=== PATIENT | male | born 1960 | race Caucasian/White ===

== ENCOUNTER 2019-05-18 06:54 | Emergency (ER) | payer MEDICAID, OTHER ==
[~2019-05-18] VITALS: Ht 193 cm; Wt 108.9 kg
[~2019-05-18 06:54] MED LIST: CITA20TA9 PO; FAMO20TA7 PO; GABA-827 PO; LURA20TA PO; MELA5TAB14 PO; SUCR1ORA5 PO; THIA100T67 PO
[2019-05-18] MEDS ORDERED: MORPHINE SULFATE 4 MG/ML, 1ML IVPush PRN (07:30)
[2019-05-18] MEDS ORDERED: METOCLOPRAMIDE 5 MG/ML, 2ML ONE (07:41)
[2019-05-18] MEDS ORDERED: MORPHINE SULFATE 4 MG/ML, 1ML ONE (07:42)
[2019-05-18] MEDS ORDERED: MAALOX/HYOSCYAMINE/LIDOCAINE 45 ML BTL ONE (07:42)
[2019-05-18] MEDS ORDERED: FAMOTIDINE 20 MG/2 ML ONE (07:42)
[2019-05-18 07:56] LABS: ALANINE AMINOTRANSFERASE 38 U/L (12-78); ALBUMIN 4.2 g/dL (3.4-5.0); ANION GAP 13 mmol/L (5-15); CHLORIDE 99 mmol/L (98-107); CREATININE 1.16 mg/dL (0.7-1.3); MEAN CORPUSCULAR HEMOGLOBIN 31.5 pg (27.5-34.5); MEAN CORPUSCULAR HGB CONC 33.5 g/dL (33.2-36.2); MEAN CORPUSCULAR VOLUME 93.9 fL (81-97); MEAN PLATELET VOLUME 9.4 fL (7.4-10.4); PLATELET COUNT 297 x10^3/uL (130-400); RED BLOOD COUNT 5.12 x10^6/uL (4.38-5.82); RED CELL DISTRIBUTION WIDTH 14.6 % (9.4-14.8)
--- NOTE | 2019-05-18 07:58 | NUR ---
PIV STARTED AND BLOOD DRAWN. PT MEDICATED PER JUN FOR ABD PAIN AND NAUSEA. CONNECTED TO CONTINUOUS CARDIAC AND SPO2 MONITORS WITH BP CUFF SET TO Q30 MINS. WILL CONTINUE TO MONITOR.
[2019-05-18] MEDS ORDERED: MAALOX/HYOSCYAMINE/LIDOCAINE 45 ML BTL PO ONE (08:00)
[2019-05-18] MEDS ORDERED: METOCLOPRAMIDE 5 MG/ML, 2ML IVPush ONE (08:00)
[2019-05-18] MEDS ORDERED: SODIUM CHLORIDE 0.9% 1,000ML IVBOLUS ONE (08:00)
[2019-05-18] MEDS ORDERED: FAMOTIDINE 20 MG/2 ML IVPush ONE (08:00)
[2019-05-18 08:01] LABS: ALKALINE PHOSPHATASE 63 U/L (45-117); BILIRUBIN,TOTAL 1.5 mg/dL (0.2-1.0); TOTAL PROTEIN 7.7 g/dL (6.4-8.2); TROPONIN I 0.019 ng/mL (0.000-0.045)
[2019-05-18 08:16] LABS: BASOPHILS # (AUTO) 0.05 x10^3/uL (0-0.1); BASOPHILS % (AUTO) 0 % (0-1); EOSINOPHILS # (AUTO) 0.02 x10^3/uL (0-0.4); EOSINOPHILS % (AUTO) 0 % (1-7); LYMPHOCYTES # (AUTO) 1.39 x10^3/uL (1-3.4); LYMPHOCYTES % (AUTO) 10 % (22-44); MD SCAN; MONOCYTES # (AUTO) 0.95 x10^3/uL (0.2-0.8); MONOCYTES % (AUTO) 7 % (2-9); NEUTROPHILS # (AUTO) 12.07 x10^3/uL (1.8-6.8); NEUTROPHILS % (AUTO) 83 % (42-75)
[2019-05-18] MEDS ORDERED: SODIUM CHLORIDE FLUSH 10ML SYR IVF ONE (08:30)
--- NOTE | 2019-05-18 08:32 | NUR ---
CT DOING CODE NEURO BEFORE THIS PATIENT
--- NOTE | 2019-05-18 08:52 | NUR ---
PT REPORTS RELIEF OF NAUSEA AND ABD PAIN. SULLY ANDREW NOTIFIED. PT TO HAVE CT DUE TO ELEVATED WBC.
--- NOTE | 2019-05-18 09:08 | NUR ---
REPORT FROM BILL
--- NOTE | 2019-05-18 09:27 | NUR ---
OK TO DO CT WO CONTRAST. IV FAILED DURING CT W CONTRAST.
[2019-05-18 10:13] VITALS: BP 124/75
--- NOTE | 2019-05-18 11:02 | NUR ---
Patient/Caregiver given discharge instructions and they have confirmed that they understand the instructions. Patient ambulatory with steady gait.
== END 2019-05-18 11:07 | disposition home or self-care (01) ==
LOC: ED 08:36
DX: K29.00 Acute gastritis without bleeding (principal); R11.2 Nausea with vomiting, unspecified
CPT/HCPCS: 36415; 71045; 74176; 80053; 83690; 83880; 84484; 85025; 93005; 96361; 96374; 96375; 99284; J2270; J2765; J3490; J7030

== ENCOUNTER 2019-07-02 08:06 | Emergency (ER) | payer SELFPAY ==
[~2019-07-02] VITALS: Ht 193 cm; Wt 104.5 kg
[2019-07-02] MEDS ORDERED: LORazepam 1MG TABLET PO ONE ×2 (08:30→09:30)
[2019-07-02] MEDS ORDERED: LORazepam 1MG TABLET ONE ×2 (08:32→08:54)
[2019-07-02 08:38] LABS: BASOPHILS # (AUTO) 0.05 x10^3/uL (0-0.1); BASOPHILS % (AUTO) 1 % (0-1); EOSINOPHILS # (AUTO) 0.06 x10^3/uL (0-0.4); EOSINOPHILS % (AUTO) 1 % (1-7); LYMPHOCYTES # (AUTO) 2.73 x10^3/uL (1-3.4); LYMPHOCYTES % (AUTO) 29 % (22-44); MD NO; MEAN CORPUSCULAR HEMOGLOBIN 32.1 pg (27.5-34.5); MEAN CORPUSCULAR HGB CONC 34.1 g/dL (33.2-36.2); MEAN CORPUSCULAR VOLUME 94.2 fL (81-97); MONOCYTES % (AUTO) 9 % (2-9); NEUTROPHILS # (AUTO) 5.75 x10^3/uL (1.8-6.8); NEUTROPHILS % (AUTO) 61 % (42-75); PLATELET COUNT 359 x10^3/uL (130-400); RED BLOOD COUNT 4.94 x10^6/uL (4.38-5.82); RED CELL DISTRIBUTION WIDTH 15.1 % (9.4-14.8)
--- NOTE | 2019-07-02 08:46 | NUR ---
Pt resting on gurne in SI/HI secured room. All personal belongings secured and locked in ED locker for safe keeping. One of one bags in locker. Pt provided urine sample and allowed lab for blood draw. Pt provided blankes for comfort. Sitter within direct line of sight for observation. No needs expressed at this time.
[2019-07-02 08:50] LABS: ALBUMIN 3.6 g/dL (3.4-5.0); ANION GAP 14 mmol/L (5-15); CALCIUM 8.4 mg/dL (8.5-10.1); CHLORIDE 99 mmol/L (98-107); CREATININE 0.95 mg/dL (0.7-1.3)
[2019-07-02 08:51] LABS: SALICYLATE LEVEL < 1.7 mg/dL (2.8-20.0)
[2019-07-02 08:56] LABS: AMPHETAMINE SCREEN, URINE Negative (Negative); BARBITURATE SCREEN, URINE Negative (Negative); BENZODIAZEPINE SCREEN, URINE Negative (Negative); CANNABINOID SCREEN, URINE Positive (Negative); COCAINE SCREEN, URINE Negative (Negative); METHADONE SCREEN, URINE Negative (Negative); OPIATE SCREEN, URINE Negative (Negative)
[2019-07-02] MEDS ORDERED: ZIPRASIDONE 20 MG INJ IM ONE ×2 (09:30→09:31)
[2019-07-02] MEDS ORDERED: POTASSIUM CHLORIDE 20 MEQ TAB.ER.PRT ONE (09:31)
--- NOTE | 2019-07-02 09:42 | NUR ---
Provided pt medications per EMAR and pt request for "not feeling right, I feel like I am going to explode." Pt appreciative. Ordered pt breakfast tray. Sitter in direct line of sight for observation. No other needs expressed. Room remains secured for SI/HI.
[2019-07-02] MEDS: POTASSIUM CHLORIDE 20 MEQ TAB.ER.PRT PO SCH (10:10)
[2019-07-02] MEDS ORDERED: CITA40TA12 PO (10:18)
--- NOTE | 2019-07-02 10:22 | NUR ---
Pt provided medicaiton per EMAR and food tray. Pt appreciative. Pt states, "that other med helped alot I feel much better now, thank you." Pt eating breakfast tray and watching TV. No needs requested at this time. Sitter in direct line of sight for observation.
--- NOTE | 2019-07-02 11:33 | NUR ---
Pt sitting on gurney watching TV. Pt remains on SI/HI precautions. Sitter in direct line of sight for observation.
--- NOTE | 2019-07-02 12:20 | NUR ---
TIFFANY SWAPPED WITH HOSPITAL BED. PT DENIES FURTHER NEEDS AT THIS TIME. SITTER MONITORING FROM [facility] FOR SAFETY. TIFF HURD AT BEDSIDE NOW, ASSESSMENT IN PROGRESS
--- NOTE | 2019-07-02 13:11 | NUR ---
BEDSIDE REPORT FROM ELICIA TALAVERA, PT RESTING IN HOSPITAL BED. SITTER AT BEDSIDE, NO NEEDS AT THIS TIME
--- NOTE | 2019-07-02 14:00 | NUR ---
PACKET FAXED TO [facility]
--- NOTE | 2019-07-02 14:10 | NUR ---
PT RESTING IN HOSPITAL WATCHING TV WITH SITTER AT BEDSIDE. NO NEEDS AT THIS TIME.
--- NOTE | 2019-07-02 15:03 | NUR ---
PT RESTING IN HOSPITAL WATCHING TV WITH SITTER AT BEDSIDE. NO NEEDS AT THIS TIME.
[2019-07-02] MEDS ORDERED: hydrOXyzine 50MG TABLET ONE (15:20)
[2019-07-02] MEDS: HYDROXYZINE PAMOATE 50MG CAP PO PRN ×2 (15:23→22:14)
--- NOTE | 2019-07-02 16:02 | NUR ---
PT RESTING IN GURNEY WITH SITTER AT BEDSIDE. PT MEDICATED FOR ANXIETY PER REQUEST
--- NOTE | 2019-07-02 19:47 | NUR ---
PT RESTING CALMLY WATCHING TV, NAD, RESPIRATIONS EVEN AND UNLABORED, DENIES NEEDS, ROOM SECURED, SITTER AT DOORWAY FOR CONTINOUS MONITORING
--- NOTE | 2019-07-02 21:09 | NUR ---
PT SITTING UP WATCHING TV, NAD, RESPIRATIONS EVEN AND UNLABORED, DENIES NEEDS, SITTER AT DOORWAY FOR CONTINOUS MONITORING
--- NOTE | 2019-07-02 21:52 | NUR ---
pt requesting medication for anxiety. yellow slip sent to pharmacy
--- NOTE | 2019-07-02 22:15 | NUR ---
PT MEDICATED PER JUN, DENIES FURTHER NEEDS AT THIS TIME, NADN. SITTER AT DOORWAY FOR CONTINOUS MONITORING
--- NOTE | 2019-07-02 22:47 | NUR ---
PROVIDED PT WITH CRACKERS AND WATER PER HIS REQUEST, SI PRECAUTIONS MAINTAINED
--- NOTE | 2019-07-02 23:29 | NUR ---
PT SITTING UP WATCHING TV, DENIES NEEDS, SITTER AT DOORWAY FOR CONTINOUS MONITORING
--- NOTE | 2019-07-03 00:46 | NUR ---
PT SITTING UP WATCHING TV, NAD, SITTER AT DOORWAY FOR CONTINOUS MONITORING
--- NOTE | 2019-07-03 01:17 | NUR ---
report given to rosaenn min
--- NOTE | 2019-07-03 01:41 | NUR ---
report rec'd from maggie rn pt is sleeping no needs at this time sitter at door
--- NOTE | 2019-07-03 01:48 | NUR ---
pt awake wants to tale sleeping med
[2019-07-03] MEDS ORDERED: TRAZODONE 50MG TABLET ONE (01:50)
[2019-07-03] MEDS: TRAZODONE 50MG TABLET PO PRN (01:54)
--- NOTE | 2019-07-03 01:59 | NUR ---
given trazodone per pt's c/o unable to sleep
--- NOTE | 2019-07-03 06:30 | NUR ---
pt was sleeping when check vss stable vss breakfast was ordered sitter at door
--- NOTE | 2019-07-03 06:52 | NUR ---
report received from pako whitfield.
[2019-07-03] MEDS ORDERED: POTASSIUM CHLORIDE 20 MEQ TAB.ER.PRT ONE (07:15)
[2019-07-03] MEDS ORDERED: CITALOPRAM 20 MG TABLET ONE (07:15)
--- NOTE | 2019-07-03 08:16 | NUR ---
pt sleeping. resps even and unlabored. sitter monitoring from hallway for safety. room remains secure.
--- NOTE | 2019-07-03 08:20 | NUR ---
meal tray ordered again d/t pt in room2 took this pt's meal tray at this time.
[2019-07-03] MEDS ORDERED: POTASSIUM CHLORIDE 20 MEQ TAB.ER.PRT PO SCH (09:00)
[2019-07-03] MEDS: POTASSIUM CHLORIDE 20 MEQ TAB.ER.PRT PO SCH (09:00)
[2019-07-03] MEDS: CITALOPRAM 20 MG TABLET PO SCH (09:00)
--- NOTE | 2019-07-03 09:18 | NUR ---
meal tray provided at this time. pt medicated per emar. pt tolerated well.
--- NOTE | 2019-07-03 09:18 | NUR ---
pt amb to br and back to room with steady gait.
--- NOTE | 2019-07-03 10:23 | NUR ---
pt sleeping. resps even and unlabored. sitter monitoring from hallway for safety. room remains secure.
--- NOTE | 2019-07-03 10:29 | NUR ---
MEAL TRAY ORDERED AT THIS TIME.
--- NOTE | 2019-07-03 11:43 | NUR ---
lunch tray provided at this time.
[2019-07-03] MEDS ORDERED: HYDROXYZINE PAMOATE 50MG CAP ONE ×2 (11:55→18:07)
[2019-07-03] MEDS: HYDROXYZINE PAMOATE 50MG CAP PO PRN ×2 (11:57→18:08)
--- NOTE | 2019-07-03 11:59 | NUR ---
pt medicated per emar for anxiety at this time. pt tolerated well.
--- NOTE | 2019-07-03 12:46 | NUR ---
PT RESTING IN HOSPITAL BED. RESPS EVEN AND UNLABORED. SITTER MONITORING FROM HALLWAY FOR SAFETY. ROOM REMAINS SECURE.
--- NOTE | 2019-07-03 14:14 | NUR ---
PT RESTING IN HOSPITAL BED. RESPS EVEN AND UNLABORED. SITTER MONITORING FROM HALLWAY FOR SAFETY. ROOM REMAINS SECURE.
--- NOTE | 2019-07-03 15:32 | NUR ---
pt sleeping. resps even and unlabored. sitter monitoring from hallway for safety. room remains secure.
--- NOTE | 2019-07-03 15:41 | NUR ---
pt amb to br and back to room with steady gait.
--- NOTE | 2019-07-03 17:08 | NUR ---
pt requesting anxiety med, but it is qid med. pt's next schedule is 18pm. pt notified and verbaly understanding.
--- NOTE | 2019-07-03 17:29 | NUR ---
meal tray ordered at this time.
--- NOTE | 2019-07-03 18:10 | NUR ---
pt medicated per emar for anxiety at this time. pt tolerated well.
--- NOTE | 2019-07-03 18:17 | NUR ---
meal tray provided at this time.
--- NOTE | 2019-07-03 19:00 | NUR ---
REPORT GIVEN TO ERROL TALAVERA.
--- NOTE | 2019-07-03 19:12 | NUR ---
ASSUMED CARE OF PT, PT SLEEPING, RESPIRATIONS EVEN AND UNLABORED, NO ACUTE DISTRESS NOTED. SITTER AT BEDSIDE.
--- NOTE | 2019-07-03 20:49 | NUR ---
RESTING ON GURNEY, WATCHING TV, NO ACUTE DISTRESS OBSERVED. SITTER AT BEDSIDE.
--- NOTE | 2019-07-03 21:34 | NUR ---
PROVIDED PT WITH PERSONAL CARE TOILETRIES, EDUCATED PT ON SAFETY OBSERVATION AND PROTOCOL, PT VERBALIZED UNDERSTANDING.
[2019-07-04] MEDS ORDERED: hydrOXyzine 50MG TABLET ONE ×2 (00:41→12:14)
[2019-07-04] MEDS ORDERED: TRAZODONE 50MG TABLET ONE (00:41)
[2019-07-04] MEDS: TRAZODONE 50MG TABLET PO PRN (00:45)
[2019-07-04] MEDS: HYDROXYZINE PAMOATE 50MG CAP PO PRN ×3 (00:59→19:55)
--- NOTE | 2019-07-04 01:00 | NUR ---
PT REPORTS FEELING ANXIOUS, REQUESTING [facility]. MEDICATED PER JUN.
--- NOTE | 2019-07-04 03:00 | NUR ---
SLEEPING IN NO ACUTE DISTRESS, RESPIRATIONS EVEN AND UNLAORED, SAFETY PRECAUTIONS IN PLACE. SITTER AT DOORWAY.
--- NOTE | 2019-07-04 04:12 | NUR ---
PT SLEEPING COMFORTABLY, NO ACUTE DISTRESS NOTED, RESPIRATIONS EVEN AND UNLABORED. SITTER AT DOORWAY.
--- NOTE | 2019-07-04 06:22 | NUR ---
SLEEPING, RESPIRATIONS UNLABORED AND EVEN, NO DISTRESS NOTED. SITTER AT DOORWAY FOR SAFETY MONITORING.
--- NOTE | 2019-07-04 06:54 | NUR ---
REPORT GIVEN TO ELICIA TALAVERA.
--- NOTE | 2019-07-04 07:09 | NUR ---
Received report from ILAN Rodriguez. All questions answered. Assuming care of pt at this time. Pt asleep on left lateral side with unlabored respirations and even chest rise and fall. NADN. No needs expressed at this time. Pt remains in secured SI/HI room. Sitter near doorway in direct line of sight for observation. Breakfast tray ordered for pt.
--- NOTE | 2019-07-04 08:28 | NUR ---
Breakfast tray provided for pt. Pt remains asleep on hospital bed. Room remains secured for SI/HI. No needs expressed at this time. Sitter remains in direct line of sight near doorway for pt safety. Pt has unlabored respirations with even chest rise and fall.
[2019-07-04] MEDS ORDERED: CITALOPRAM 20 MG TABLET ONE (09:14)
[2019-07-04] MEDS ORDERED: POTASSIUM CHLORIDE 20 MEQ TAB.ER.PRT ONE (09:14)
[2019-07-04] MEDS: CITALOPRAM 20 MG TABLET PO SCH (09:21)
[2019-07-04] MEDS: POTASSIUM CHLORIDE 20 MEQ TAB.ER.PRT PO SCH (09:21)
--- NOTE | 2019-07-04 09:30 | NUR ---
Obtained pt's vital signs, re-assessed SI screen, and physical assessment. Pt apprecaitive. Provided pt morning medicaitons. Pt appreciative. No needs expressed at this time. Pt in room resting on hospital bed. Sitter in direct line of sight for observation.
--- NOTE | 2019-07-04 09:43 | NUR ---
mathieu with [facility] called and given update that pt is still in er needing placement. If bed opens up, they will call.
--- NOTE | 2019-07-04 10:27 | NUR ---
Pt resting with eyes closed on hospital bed in SI/HI secured room. Pt has unlabored respirations with even chest rise and fall. Sitter in direct line of sight for observation. No needs expressed at this time.
--- NOTE | 2019-07-04 10:30 | NUR ---
Lunch tray orderd for pt.
--- NOTE | 2019-07-04 12:15 | NUR ---
Pt provided lunch tray. Pt requesting medication per EMAR for anxiety.
--- NOTE | 2019-07-04 12:25 | NUR ---
Provided medication per EMAR for anxiety per pt request. Pt appreciative. No other needs expressed. Sitter in direct line of sight for observation.
--- NOTE | 2019-07-04 13:08 | NUR ---
PT RESTING COMFORTABLY. NADN. ROOM SECURE AND SITTER IN HALLWAY.
--- NOTE | 2019-07-04 14:08 | NUR ---
RECEIVED REPORT FROM ELICIA, PT U[place] ON [place] AWAKE, CALM & COOPERATIVE, NAD, RESPONDS APPROP TO STAFF, NO NEEDS AT THIS TIME, PT REMAINS IN SAFE ENVIRONMENT, SITTER IN VIEW.
--- NOTE | 2019-07-04 15:00 | NUR ---
PT REMAINS UPRIGHT ON GURNEY AWAKE, CALM & COOPERATIVE, WATCHING TV, NAD, RESPONDS APPROP TO STAFF, NO NEEDS AT THIS TIME, PT REMAINS IN SAFE ENVIRONMENT, SITTER IN VIEW.
--- NOTE | 2019-07-04 16:02 | NUR ---
PT UPRIGHT ON GURNEY AWAKE, CALM & COOPERATIVE, WATCHING TV, NAD, RESPONDS APPROP TO STAFF, NO NEEDS AT THIS TIME, PT REMAINS IN SAFE ENVIRONMENT, SITTER IN VIEW.
--- NOTE | 2019-07-04 17:45 | NUR ---
DINNER TRAY GIVEN
--- NOTE | 2019-07-04 19:01 | NUR ---
REPORT GIVEN TO KAMRAN
--- NOTE | 2019-07-04 19:32 | NUR ---
pt resting watching tv, requesting medication for anxiety, yellow slip sent to pharmacy, room secured, sitter at doorway for continous monitoring
--- NOTE | 2019-07-04 19:55 | NUR ---
pt medicated per mar
--- NOTE | 2019-07-04 19:57 | NUR ---
pt resting calmly, denies si/hi thoughts at this time, [place], sitter at [facility] for continous monitoring
--- NOTE | 2019-07-04 20:52 | NUR ---
pt resting calmly, watching tv, denies needs, sitter at doorway for continous monitoring
[2019-07-04] MEDS ORDERED: DOXEPIN 25 MG CAPSULE PO PRN (21:00)
--- NOTE | 2019-07-04 21:43 | NUR ---
pt resting on bed watching tv, provided pt with water, denies further needs, nad, respirations even and unlabored, sitter at doorway for continous monitoring
--- NOTE | 2019-07-04 22:52 | NUR ---
provided pt with peanut butter and crackers per his request, si precautions maintained.
--- NOTE | 2019-07-04 23:52 | NUR ---
pt resting calmly, denies needs, sitter aremains at doorway for continous monitoring
--- NOTE | 2019-07-04 23:58 | NUR ---
ptt quality control specialist light requesting medication to help him sleep, pt medicated per mar
--- NOTE | 2019-07-05 00:51 | NUR ---
pt resting calmly, denies needs, sitter at doorway for continous monitoring
--- NOTE | 2019-07-05 01:00 | NUR ---
pt resting in bed with eyes closed, equal chest rise/fall observed, sitter at doorway for continous monitoring
--- NOTE | 2019-07-05 02:00 | NUR ---
pt resting in bed with eyes closed, equal chest rise/fall observed, sitter at doorway for continous monitoring
--- NOTE | 2019-07-05 03:00 | NUR ---
pt resting in bed with eyes closed, equal chest rise/fall observed, sitter at doorway for continous monitoring
--- NOTE | 2019-07-05 04:00 | NUR ---
pt resting in bed with eyes closed, equal chest rise/fall observed, sitter at doorway for continous monitoring
--- NOTE | 2019-07-05 05:03 | NUR ---
pt resting in bed with eyes closed, equal chest rise/fall observed, sitter at doorway for continous monitoring
--- NOTE | 2019-07-05 07:04 | NUR ---
RECEIVED REPORT FROM ILAN BANDA. PT LAYING IN BED, RESPIRATIONS EVEN AND UNLABORED, NO SIGNS OF DISTRESS, LIGHTS OFF TO PROMOTE REST.
[2019-07-05] MEDS: CITALOPRAM 20 MG TABLET PO SCH ×2 (09:00→10:08)
[2019-07-05 09:54] VITALS: BP 134/95
--- NOTE | 2019-07-05 09:54 | NUR ---
report from tali whitfield. pt in room, room is secure, sitter in hallway in direct line of sight. [place]. will continue to monitor.
[2019-07-05] MEDS ORDERED: CITALOPRAM 20 MG TABLET ONE (10:01)
[2019-07-05] MEDS ORDERED: POTASSIUM CHLORIDE 20 MEQ TAB.ER.PRT ONE (10:01)
[2019-07-05] MEDS: POTASSIUM CHLORIDE 20 MEQ TAB.ER.PRT PO SCH (10:08)
--- NOTE | 2019-07-05 11:23 | NUR ---
ALEXYS FROM [facility] CALLED TO ACCEPT THIS PT UNDER THE CARE OF DR. NINA.
== END 2019-07-05 13:17 ==
LOC: ED 08:33
DX: F33.3 Major depressive disorder, recurrent, severe with psychotic symptoms (principal); R45.851 Suicidal ideations; Z85.828 Personal history of other malignant neoplasm of skin
CPT/HCPCS: 36415; 80048; 80307; 82040; 85025; 96372; 99285; J3486